=== PATIENT | male | born 1965 | race Two or more races ===

== ENCOUNTER 2017-05-12 06:29 | Inpatient (IN) | payer BC ==
[2017-05-07 14:00] VITALS: BMI 42.1
[2017-05-12] MEDS ORDERED: CEFAZOLIN 2 GM in DEXTROSE 5%-WATER - 100 ML IVPB ONE (07:06)
[2017-05-12] MEDS ORDERED: oxyCODONE HCL 10 MG SUSTAINED ACTING TABLET PO STA (07:06)
--- NOTE | 2017-05-12 07:59 | HP ---
History & Physical Update - History History: No Change - Physical Physical: No Change - Assessment Assessment: No Change - Plan Plan: No Change
[2017-05-12] MEDS ORDERED: BUPIVACAINE HCL/PF 0.5% (5MG/ML) 10 ML VIAL ONE (08:07)
[2017-05-12] MEDS ORDERED: ePHEDrine SULFATE 50 MG/1 ML AMPULE ONE (08:11)
[2017-05-12] MEDS ORDERED: PROPOFOL 20 ML ONE ×4 (08:12)
[2017-05-12] MEDS ORDERED: MIDAZOLAM HCL 2 MG/2 ML SINGLE DOSE VIAL ONE ×4 (08:16→10:48)
[2017-05-12] MEDS ORDERED: OXYMETAZOLINE 0.05% NASAL SOLUTION 15 ML BOTTLE NS ONE (08:47)
[2017-05-12] MEDS ORDERED: LIDOCAINE 1%/EPI 1:100000 (50 ML MULTI DOSE VIAL) INF ONE (09:05)
[2017-05-12] MEDS ORDERED: THROMBIN (BOVINE) 5,000 UNIT VIAL TP ONE (10:45)
[2017-05-12] MEDS ORDERED: GELATIN SPONGE,ABSORBABLE 1 GM PACKET TP ONE (10:46)
[2017-05-12] MEDS ORDERED: BUPIVACAINE HCL/PF 0.25% (2.5MG/ML) 10 ML VIAL IJ ONE (11:10)
[2017-05-12] MEDS ORDERED: ONDANSETRON 4 MG/2 ML VIAL IVPUSH PRN (11:31)
--- NOTE | 2017-05-12 11:33 | OP ---
Operative Note - Note: Operative Date: 05/12/17 Pre-Operative Diagnosis: L4-L5 spondylolithesis Operation: TLIF L4-L5 Post-Operative Diagnosis: Same as Pre-op Surgeon: Lux Sanderson Monitoring Tech: Giorgi Baig Anesthesiologist/HEALTH AND WELLNESS COACH: Kei Thacker Anesthesia: Spinal Estimated Blood Loss (mls): 30 Fluid Volume Replaced (mls): 1,400 Operative Report Dictated: Yes
--- NOTE | 2017-05-12 11:34 | SURG ---
Surgery Apiarist Note Apiarist: Giorgi Baig PA-C Date of Service: 05/12/17 Diagnosis: L4-L5 spondylolithesis, radiculopathy Procedure: Posterior lumbar decompression/fusion/instrumentation/transforaminal lumbar interbody fusion L4-L5 with allograft and neuromonitoring I was present for the entirety of the operative procedure. For further detail, please refer to operative report. Visit type - Case Type Case Type: Scheduled Admission - New patient This patient is new to me today: Yes Date on this admission: 05/12/17
[2017-05-12] MEDS ORDERED: oxyCODONE HCL 5 MG TABLET PO PRN (11:35)
[2017-05-12] MEDS ORDERED: KETOROLAC TROMETHAMINE 30 MG/1 ML VIAL IVPUSH PRN ×2 (11:35→18:00)
[2017-05-12] MEDS ORDERED: ONDANSETRON 4 MG/2 ML VIAL IVPB PRN (11:35)
[2017-05-12] MEDS ORDERED: CYCLOBENZAPRINE HCL 10 MG TABLET (FP) PO PRN (11:35)
[2017-05-12] MEDS ORDERED: morphine CARPU-JECT 4 MG/1 ML DISP.SYRIN IVPUSH PRN (11:35)
[2017-05-12] MEDS ORDERED: diazePAM CARPU-JECT 10 MG/2 ML DISP.SYRIN IVPUSH ONE (11:38)
[2017-05-12] MEDS ORDERED: LACTATED RINGERS SOLUTION 1,000 ML IV SCH ×2 (11:45)
[2017-05-12] MEDS ORDERED: ACETAMINOPHEN 1000 MG/100 ML VIAL (NON FORMULARY) IVPB ONE (12:00)
[2017-05-12] MEDS ORDERED: ACETAMINOPHEN 1000 MG/100 ML VIAL (NON FORMULARY) IVPB PRN (12:00)
[2017-05-12] MEDS ORDERED: traMADol HCL 50 MG TABLET PO PRN ×2 (12:00→12:15)
[2017-05-12] MEDS: oxyCODONE HCL 5 MG TABLET PO PRN ×3 (13:55→22:01)
[2017-05-12] MEDS: ceFAZolin 2 GRAM PREMIX BAG IVPB SCH ×2 (16:18→23:30)
[2017-05-12] MEDS: ACETAMINOPHEN 325 MG TABLET (FP) PO SCH ×2 (17:58→23:30)
[2017-05-12] MEDS ORDERED: ATORVASTATIN CA 10 MG TABLET (FP) PO SCH (22:00)
[2017-05-12] MEDS: CYCLOBENZAPRINE HCL 10 MG TABLET (FP) PO SCH (22:00)
[2017-05-13] MEDS: oxyCODONE HCL 5 MG TABLET PO PRN (06:29)
[2017-05-13] MEDS: ACETAMINOPHEN 325 MG TABLET (FP) PO SCH ×2 (06:30→12:41)
[2017-05-13] MEDS: CYCLOBENZAPRINE HCL 10 MG TABLET (FP) PO SCH ×2 (06:30→14:08)
[2017-05-13] MEDS: ceFAZolin 2 GRAM PREMIX BAG IVPB SCH (08:05)
[2017-05-13 08:17] LABS: ANION GAP 3 (8-16); CALCIUM 8.7 mg/dl (8.4-10.2); CO2 29 mmol/L (22-28); CREATININE 0.6 mg/dl (0.6-1.3); GLUCOSE,RANDOM 119 mg/dl (74-106)
[2017-05-13 08:18] LABS: MCH 27.8 pg (25.7-33.7); MCHC 33.7 g/dl (32.0-35.9); MEAN CELL VOLUME 82.5 fl (80-96); MEAN PLT VOLUME 8.9 fl (7.5-11.1); PLATELET COUNT 293 K/MM3 (134-434); RDW 13.8 % (11.9-15.9)
--- NOTE | 2017-05-13 09:38 | DS ---
Physical Exam: SUBJECTIVE: Patient seen and examined today complains of pain at incision site. OBJECTIVE: Vital Signs Temperature 98.6 F 05/13/17 06:00 Pulse Rate 74 05/13/17 06:00 Respiratory Rate 19 05/13/17 08:59 Blood Pressure 161/66 05/13/17 06:00 O2 Sat by Pulse Oximetry (%) 98 05/13/17 08:59 PHYSICAL EXAM GENERAL: The patient is awake, alert, and fully oriented, in no acute distress. LUNGS: Breath sounds equal, clear to auscultation bilaterally, no wheezes, no crackles, no accessory muscle use. HEART: Regular rate and rhythm, S1, S2 without murmur, rub or gallop. ABDOMEN: Soft, nontender, nondistended, normoactive bowel sounds, no guarding, no rebound. BACL: Dressing changed, inc c/d/i with dermabond. minimal ecchymosis, no erythema noted. EXTREMITIES: No calf tenderness/swelling b/l. NEUROLOGICAL: Normal speech, 5/5 dorsi/platnar flexion b/l PSYCH: Normal mood, normal affect. LABS CBC,CMP WBC 16.0 K/mm3 (4.0-10.8) H 05/13/17 07:30 RBC 4.24 M/mm3 (4.00-5.60) 05/13/17 07:30 Hgb 11.8 GM/dl (11.7-16.9) 05/13/17 07:30 Hct 35.0 % (35.4-49) L 05/13/17 07:30 MCV 82.5 fl (80-96) 05/13/17 07:30 MCH 27.8 pg (25.7-33.7) 05/13/17 07:30 MCHC 33.7 g/dl (32.0-35.9) 05/13/17 07:30 RDW 13.8 % (11.9-15.9) 05/13/17 07:30 Plt Count 293 K/MM3 (134-434) 05/13/17 07:30 MPV 8.9 fl (7.5-11.1) 05/13/17 07:30 Sodium 134 mmol/L (136-145) L 05/13/17 07:30 Potassium 3.3 mmol/L (3.5-5.1) L 05/13/17 07:30 Chloride 102 mmol/L (98-107) 05/13/17 07:30 Carbon Dioxide 29 mmol/L (22-28) H 05/13/17 07:30 Anion Gap 3 (8-16) L 05/13/17 07:30 BUN 13 mg/dl (7-18) 05/13/17 07:30 Creatinine 0.6 mg/dl (0.6-1.3) 05/13/17 07:30 Random Glucose 119 mg/dl (74-106) H 05/13/17 07:30 Calcium 8.7 mg/dl (8.4-10.2) 05/13/17 07:30 HOSPITAL COURSE: Date of Admission:05/12/17 Date of Discharge: 05/13/17 The patient was admitted to the Med-Surg Unit after an elective repair of their L4-L5 spondylolisthesis. Now, s/p L4-L5 posterior lumbar fusion. The day of surgery, the patient ambulated with assistance to the bathroom. Narcotic and non -narcotic pain management control was achieved with an oral and IV approach. An xray was obtained and confirmed hardware placement at L4-L5, no fractures or dislocations. Edith-operative IV ABX were administered. DVT prophylaxis was achieved with SCDs and early ambulation. The patient ambulated with Physical Therapy and no services were recommended upon discharge. Narcotic scripts and or muscle relaxants were checked with [facility] [facility] prior to escibe. The discharge instructions and an oral pain management plan were reviewed with the patient. All questions answered. Above plan discussed with Dr. Sanderson and agreed. Minutes to complete discharge: 30 <Sanjuana Whaley - Last Filed: 05/14/17 11:30> Physical Exam: SUBJECTIVE: Patient seen and examined OBJECTIVE: Vital Signs Temperature 98.3 F 05/13/17 14:03 Pulse Rate 77 05/13/17 14:03 Respiratory Rate 18 05/13/17 14:03 Blood Pressure 115/54 05/13/17 14:03 O2 Sat by Pulse Oximetry (%) 99 05/13/17 14:03 PHYSICAL EXAM GENERAL: The patient is awake, alert, and fully oriented, in no acute distress. HEAD: Normal with no signs of trauma. EYES: PERRL, extraocular movements intact, sclera anicteric, conjunctiva clear. ENT: Ears normal, nares patent, oropharynx clear without exudates, moist mucous membranes. NECK: Trachea midline, full range of motion, supple. LUNGS: Breath sounds equal, clear to auscultation bilaterally, no wheezes, no crackles, no accessory muscle use. HEART: Regular rate and rhythm, S1, S2 without murmur, rub or gallop. ABDOMEN: Soft, nontender, nondistended, normoactive bowel sounds, no guarding, no rebound, no hepatosplenomegaly, no masses. EXTREMITIES: 2+ pulses, warm, well-perfused, no edema. NEUROLOGICAL: Cranial nerves II through XII grossly intact. Normal speech, gait not observed. PSYCH: Normal mood, normal affect. SKIN: Warm, dry, normal turgor, no rashes or lesions noted. LABS CBC,CMP WBC 16.0 K/mm3 (4.0-10.8) H 05/13/17 07:30 RBC 4.24 M/mm3 (4.00-5.60) 05/13/17 07:30 Hgb 11.8 GM/dl (11.7-16.9) 05/13/17 07:30 Hct 35.0 % (35.4-49) L 05/13/17 07:30 MCV 82.5 fl (80-96) 05/13/17 07:30 MCH 27.8 pg (25.7-33.7) 05/13/17 07:30 MCHC 33.7 g/dl (32.0-35.9) 05/13/17 07:30 RDW 13.8 % (11.9-15.9) 05/13/17 07:30 Plt Count 293 K/MM3 (134-434) 05/13/17 07:30 MPV 8.9 fl (7.5-11.1) 05/13/17 07:30 Sodium 134 mmol/L (136-145) L 05/13/17 07:30 Potassium 3.3 mmol/L (3.5-5.1) L 05/13/17 07:30 Chloride 102 mmol/L (98-107) 05/13/17 07:30 Carbon Dioxide 29 mmol/L (22-28) H 05/13/17 07:30 Anion Gap 3 (8-16) L 05/13/17 07:30 BUN 13 mg/dl (7-18) 05/13/17 07:30 Creatinine 0.6 mg/dl (0.6-1.3) 05/13/17 07:30 Random Glucose 119 mg/dl (74-106) H 05/13/17 07:30 Calcium 8.7 mg/dl (8.4-10.2) 05/13/17 07:30 HOSPITAL COURSE: Date of Admission:05/12/17 Date of Discharge: 05/15/17 The patient was admitted to the Med-Surg Unit after an elective repair of their L4-5 spondylolisthesis. The day of surgery, the patient ambulated the hallways with assistance. Narcotic and non-narcotic pain management control was achieved with an oral and IV approach. POD #1, the surgical drain was removed fully intact and without incident. An xray was obtained and confirmed hardware placement at L4-5, no fractures or dislocations. Edith-operative IV ABX were administered. DVT prophylaxis was achieved with SCDs and early ambulation. The patient ambulated with Physical Therapy and no services were recommended upon discharge. Narcotic scripts and or muscle relaxants were checked with [facility] prior to escibe. The discharge instructions and an oral pain management plan were reviewed with the patient. All questions answered. Above plan discussed with Dr. Sanderson and agreed. Patient seen and examined Agree with Above D/C Planning <Lux Sanderson - Last Filed: 05/15/17 10:48> Visit type - Case Type Case Type: Scheduled Admission - Emergency Emergency Visit: No - New patient This patient is new to me today: No - Critical Care Critical Care patient: No <Sanjuana Whaley - Last Filed: 05/14/17 11:30>
[2017-05-13] MEDS ORDERED: DOCUSATE SODIUM 100 MG CAPSULE (FP) PO SCH (10:00)
[2017-05-13] MEDS ORDERED: POTASSIUM CHLORIDE TABS 20 MEQ TABLET.ER (FP) PO ONE ×2 (10:00→13:00)
[2017-05-13] MEDS ORDERED: amLODIPine BESYLATE 10 MG TABLET (FP) PO SCH (10:00)
[2017-05-13] MEDS ORDERED: ENALAPRIL MALEATE 10 MG TABLET (FP) PO SCH (10:00)
[2017-05-13] MEDS ORDERED: ALLOPURINOL 300 MG TABLET (FP) PO SCH (10:00)
[2017-05-13] MEDS ORDERED: ASPIRIN COATED 81 MG TABLET.EC PO SCH (10:00)
[2017-05-13] MEDS ORDERED: PANTOPRAZOLE 40 MG TABLET (FP) PO SCH (10:00)
[2017-05-13] MEDS ORDERED: PATIENT'S OWN MEDICATION (NON-FORMULARY) (Enalapril/Hydrochlorothiazide [Vaseretic 10-25 M PO SCH (10:00)
[2017-05-13] MEDS ORDERED: HYDROCHLOROTHIAZIDE 25 MG TABLET (FP) PO SCH (10:00)
[2017-05-13] MEDS ORDERED: PATIENT'S OWN MEDICATION (NON-FORMULARY) (Omega-3 Fatty Acids [Fish Oil] 300 MG) PO SCH (10:00)
[2017-05-13] MEDS ORDERED: SODIUM CHLORIDE 500 ML IV STA (12:21)
[2017-05-13 14:04] VITALS: BP 115/54; PULSE 77; TEMP 98.3
--- NOTE | 2017-05-13 14:30 | OP ---
DATE OF OPERATION: 05/12/2017 PREOPERATIVE DIAGNOSES: 1. L4-5 spinal stenosis. 2. L4-5 spondylolisthesis. POSTOPERATIVE DIAGNOSES: 1. L4-5 spinal stenosis. 2. L4-5 spondylolisthesis. PROCEDURE PERFORMED: 1. L4-5 transforaminal lumbar interbody fusion. 2. Placement of prosthetic cage. 3. Hemilaminectomy. 4. Placement of instrumentation. SURGEON: Lux Sanderson MD INSERTER: HUSSEIN Lopez ESTIMATED BLOOD LOSS: 50 mL INTRAVENOUS FLUIDS: Per Anesthesia. COMPLICATIONS: There were none. ANESTHESIA: Spinal. DISPOSITION: The patient is brought to the PACU in stable condition. INDICATION FOR SURGERY: The patient is a 52-year-old gentleman who has been suffering from pain from his back down his legs. X-rays and MRI were completed, which noted that he had spinal stenosis at L4-5 secondary to a synovial cyst as well as a spondylolisthesis. He had gone through an exhaustive course of treatment for this which included medications, physical therapy, as well as injections. Unfortunately, his pain continued to persist despite all of this. At this point , risks, benefits, and alternatives were discussed, and the patient consented to surgery. DESCRIPTION OF PROCEDURE: The patient was brought to the operating room by Anesthesia. After appropriate patient identification was performed, spinal anesthesia was given. Patient was able to position himself to avoid all bony prominences. The C-arm was brought in, and the L4 and L5 pedicles were marked off. Next, 10 mL of lidocaine with epinephrine were injected into his back at this time. His back was prepped and draped in a sterile manner. At this point, timeout was completed, and incisions made bilaterally over the L4 and L5 pedicles. Dissection was carried down to the fascia. Fascia was then split open at this time. The C-arm was brought in, and under C-arm guidance, trocars are advanced into both the L4 and L5 pedicles. Through the trocars, a wire was inserted. Over the wire, tap was performed and screws inserted. On the right-hand side, retractor blades were set up to expose the L4-5 facet joint. The facet joint was removed with both a bur and osteotome. The disk was entered using a series of pituitaries, Kerrisons, and curettes. The diskectomy was completed. The endplates were decorticated at this time. Bone graft was laid down, and cage filled with bone graft was placed in. Tulip heads were placed over the screws. A kendra was measured and placed on. Caps were placed on. Final tightening was performed. Compression was applied. On the left-hand side, a kendra was measured and placed in. Caps were placed on. Final tightening and compression were applied. All extra instrumentation was removed at this time. AP and lateral x-rays confirmed the instrumentation to be in good position. The fascia was closed with a No. 1 Vicryl suture. The subcutaneous tissue was closed with 2-0 Vicryl suture. Skin was closed with 3-0 Monocryl suture. Dermabond was applied. Steri-Strips were applied. A sterile dressing was applied. Patient was placed supine on the OR bed and brought to the PACU in stable condition. Anthony [id number] MTDD
== END 2017-05-13 16:11 | disposition home or self-care (01) | DRG 460 ==
LOC: FM/S 06:29
PROVIDERS: ADMIT Orthopaedic Surgery Orthopaedic Surgery of the Spine; ATTEND Orthopaedic Surgery Orthopaedic Surgery of the Spine
PROC: 0SG00A1 (ICD-10-PCS; 2017-05-12)
PROC: 4A11X4G Monitoring of Peripheral Nervous Electrical Activity, Intraoperative, External Approach (ICD-10-PCS; 2017-05-12)
PROC: 0ST20ZZ Resection of Lumbar Vertebral Disc, Open Approach (ICD-10-PCS; principal; 2017-05-12 09:16)
DX: M43.16 Spondylolisthesis, lumbar region (principal); K21.9 Gastro-esophageal reflux disease without esophagitis; G47.30 Sleep apnea, unspecified; R20.0 Anesthesia of skin; I10 Essential (primary) hypertension
CPT/HCPCS: 36415; 72100-TC; 76001-TC; 80048; 85027; 94010; 94760; 97116-GP